=== PATIENT | male | born 1995 | race Caucasian/White ===

== ENCOUNTER 2024-04-23 14:57 | Emergency (ER) | payer MEDICAID ==
[~2024-04-23] VITALS: Ht 162.6 cm; Wt 74.8 kg
[2024-04-23 15:17] VITALS: BP 133/87; TEMP 98.4
[2024-04-23] MEDS ORDERED: IBUP-1490 PO (16:06)
[2024-04-23] MEDS ORDERED: CYCL10TA9 PO (16:06)
[2024-04-23 16:10] VITALS: O2SAT 99
== END 2024-04-23 16:12 | disposition home or self-care (01) ==
LOC: ER 15:14
DX: M54.9 Dorsalgia, unspecified (principal); Z79.1 Long term (current) use of non-steroidal anti-inflammatories (NSAID); Z79.899 Other long term (current) drug therapy; V49.3XXA Car occupant (driver) (passenger) injured in unspecified nontraffic accident, initial encounter; Y93.89 Activity, other specified; Y92.89 Other specified places as the place of occurrence of the external cause; Y99.8 Other external cause status